=== PATIENT | female | born 1940 | race Caucasian/White ===

== ENCOUNTER → 2019-04-19 | Outpatient (CLI) | payer MEDICARE, OTHER ==
[2019-04-19] VITALS (11 sets, daily range): BP systolic 100–164; BP diastolic 40–94
[~2019-04-19] MED LIST: BETAPACE80 MG PO; COLACE100 MG PO; COQ-10100 MG PO; COZAAR 25 MG TA25 M1 PO; FISH OIL 1,001000 M2 PO; NITROGLYCERIN0.4 MG SUBLING; OSTERA TABLET1 EAC1 PO; PRILOSEC OTC20 MG PO; REPATHA SY140 MG/1 M SUBQ; SYNTHROID50 MCG PO; XARELTO20 MG PO; ZETIA10 MG PO
[2019-04-19 09:37] LABS: HEMATOCRIT 44.5 % (37.0-47.0); HEMOGLOBIN 14.4 gm/dL (12.0-15.0); MCH 28.1 pg (26.0-34.0); MCHC 32.4 g/dL (28.0-37.0); MCV 86.5 fL (80.0-100.0); MPV 7.3 fl. (7.2-11.1); RBC 5.14 mil/uL (4.20-5.00); RDW-CV 15.1 % (10.5-14.5); WBC 7.2 thou/uL (4.0-11.0)
[2019-04-19 09:43] LABS: CALCIUM 9.5 mg/dL (8.5-10.1); CREATININE 0.8 mg/dL (0.6-1.3); POTASSIUM 4.1 mmol/L (3.5-5.1)
[2019-04-19 09:45] LABS: APTT 36.3 Seconds (25.0-31.3); INR 1.3; PROTIME 13.4 Seconds (9.20-11.50)
[2019-04-19 09:54] LABS: ALBUMIN 4.2 g/dL (3.4-5.0); TOTAL BILIRUBIN 1.3 mg/dL (<0.1-1.0); TOTAL PROTEIN 8.5 g/dL (6.4-8.2)
--- NOTE | 2019-04-19 15:08 | EKG ---
[place] [address] ELECTROCARDIOGRAM REPORT Name: COLTEN WEBBRED Room: 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: : 1940 Requested By: Tera Middleton Order Number: [id number] Reading MD: Tera Middleton Measurements Intervals [place] Rate: 65 P: MS: QRS: -1 QRSD: 136 T: 134 QT: 494 QTc: 514 Interpretive Statements Atrial fibrillation Ventricular premature complex LVH with IVCD and secondary repol abnrm Prolonged QT interval No previous ECG available for comparison Electronically Signed On 04-19-2019 15:08:12 CDT by Tera Middleton [email or web address] <ELECTRONICALLY SIGNED> By: Tera Middleton MD, [facility] 04/19/19 1508 [id number] [id number] Tera Middleton MD, FACC /EPI
--- NOTE | 2019-04-19 15:09 | EKG ---
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1940 Requested By: Tera Middleton Order Number: [id number] Reading MD: Tera Middleton Measurements Intervals [place] Rate: 56 P: -1 VA: 169 QRS: 2 QRSD: 100 T: 126 QT: 489 QTc: 473 Interpretive Statements Sinus rhythm RSR' in V1 or V2, probably normal variant LVH with secondary repolarization abnormality No previous ECG available for comparison Electronically Signed On 04-19-2019 15:09:08 CDT by Tera Middleton [email or web address] <ELECTRONICALLY SIGNED> By: Tera Middleton MD, [facility] 04/19/19 1509 1131 113 Tera Middleton MD, FACC /EPI
--- NOTE | 2019-04-22 15:35 | CARD ---
[address] [address] CARDIAC CATH REPORT Name: MIC WEBB Room: [facility]O FlahertyEvanHinaEvan#: [id number] Admission: 04/19/19 Attend Phys: Tera Middleton MD, Discharge: Date of : 36 Report #: [id number] THIS REPORT FOR: //name// CC: Jewels Middleton DATE OF SERVICE: 04/19/2019 CATHETERIZATION REPORT PROCEDURE: DC cardioversion with rhythm reverting from atrial fibrillation to a sinus mechanism. TECHNIQUE: The patient received sotalol 80 mg b.i.d. in preparation for the procedure and was continued on Xarelto 20 mg daily. Electrocardiogram preprocedurally demonstrated atrial fibrillation with a moderate ventricular response. The patient received sedation with 4 mg of Versed and 50 mcg of fentanyl in total. When there was an appropriate level of sedation achieved, we proceeded with DC cardioversion with AP pad location. Then, 300 joules delivered x1 with the patient's rhythm reverting from atrial fibrillation with a moderate ventricular response to sinus rhythm and a normal rate. She remained in sinus rhythm with a satisfactory systemic pressure. She gradually returned to normal level of alertness and consciousness. IMPRESSION: Successful DC cardioversion with the rhythm reverting from atrial fibrillation to sinus mechanism. <ELECTRONICALLY SIGNED> By: Tera Middleton MD, [facility] 04/22/19 1535 1026 1218Jotoro Middleton MD, FACC /nt
== END | disposition home or self-care (01) ==
LOC: M.CL 08:56
PROVIDERS: Internal Medicine
DX: I48.91 Unspecified atrial fibrillation (principal); Z88.2 Allergy status to sulfonamides; Z88.8 Allergy status to other drugs, medicaments and biological substances; Z79.899 Other long term (current) drug therapy; Z79.01 Long term (current) use of anticoagulants